=== PATIENT | male | born 1965 | race Caucasian/White ===

== ENCOUNTER 2018-01-06 08:11 | Emergency (ER) | payer MEDICAID ==
[~2018-01-06] VITALS: Ht 170.2 cm; Wt 66.0 kg
[2018-01-06] MEDS ORDERED: SODIUM CHLORIDE 0.9% 1,000 ML IV ONE (09:14)
[2018-01-06] MEDS ORDERED: MORPHINE SULFATE 4 MG/ML CPJ (NOT FOR IM USE) IV STA ×2 (09:14→12:45)
[2018-01-06] MEDS ORDERED: ONDANSETRON HCL 4MG/2ML VIAL IV STA ×2 (09:14→12:45)
[2018-01-06] MEDS ORDERED: NITROGLYCERIN 0.4MG TABLET SL SL PRN (09:15)
[2018-01-06 10:43] LABS: BASOPHILS % 0.1 % (0.0-2.0); EOSINOPHILS % 0.4 % (0.0-5.0); HEMATOCRIT. 51.2 % (42.0-52.0); HEMOGLOBIN. 17.6 g/dL (14.0-18.0); LYMPHOCYTES % 18.6 % (20.0-50.0); MEAN CORPUSCULAR HEMOGLOBIN 31.6 pg (28.0-32.0); MEAN CORPUSCULAR VOLUME 91.7 fL (80.0-94.0); MEAN PLATELET VOLUME 8.5 fl (7.4-10.4); MONOCYTES % 7.2 % (2.0-8.0); NEUTROPHILS % 73.7 % (40.0-76.0); PLATELET 229 x1000/uL (130-400); RED BLOOD CELL COUNT 5.59 mill/uL (4.7-6.1); RED CELL DISTRIBUTION WIDTH 14.9 % (11.6-14.6)
[2018-01-06 10:50] LABS: CHLORIDE 102 mEq/L (98-107)
[2018-01-06 10:51] LABS: INR 1.1; PROTHROMBIN TIME 11.4 sec (9.4-11.6)
[2018-01-06 12:52] LABS: CLARITY URINE CLOUDY (CLEAR); COLOR URINE YELLOW (YELLOW); KETONES URINE 1+ (NEGATIVE); LEUKOCYTE ESTERASE URINE TRACE (NEGATIVE); NITRITE URINE NEGATIVE (NEGATIVE); OCCULT BLOOD URINE NEGATIVE (NEGATIVE); PH URINE >=9.0 (4.5-8.0); PROTEIN URINE TRACE (NEGATIVE); SPECIFIC GRAVITY URINE 1.022 (1.005-1.030)
[2018-01-06] MEDS ORDERED: POTASSIUM CHLORIDE 20MEQ TABLET SR PO ONE (14:00)
[2018-01-06] MEDS ORDERED: ONDANSETRON 4MG ODT PO STA (15:37)
[2018-01-06] MEDS ORDERED: MAGNESIUM/ALUMINUM HYDROXIDE/SIMETHICONE 30ML UDC PO STA (15:37)
[2018-01-06] MEDS ORDERED: VISCOUS LIDOCAINE 2% 15 ML UDC PO STA (15:37)
[2018-01-06] MEDS ORDERED: FAMOTIDINE 20MG TABLET PO ONE (15:45)
[2018-01-06 16:49] VITALS: BP 131/84
== END 2018-01-06 17:01 | disposition home or self-care (01) ==
LOC: ER 08:43
DX: R10.13 Epigastric pain (principal); F17.210 Nicotine dependence, cigarettes, uncomplicated; N20.0 Calculus of kidney; Z93.3 Colostomy status; K44.9 Diaphragmatic hernia without obstruction or gangrene
CPT/HCPCS: 36415; 74176; 76705; 80053; 81003; 83690; 85025; 85610; 93005; 96374; 96375; 96376; 99285; J2270; J2405; J7030; Q0162; Z7610